=== PATIENT | female | born 1985 | race Hispanic/Latino ===

== ENCOUNTER 2024-04-19 23:15 | Emergency (ER) | payer SELFPAY ==
[2024-04-19] MEDS ORDERED: Aspirin Chewable 81 MG TAB ONE (23:27)
[2024-04-19] MEDS ORDERED: Sodium Chloride 0.9% 1,000 ML ONE (23:27)
[2024-04-19] MEDS ORDERED: Magnesium 2 GM/50 ML BAG (IN WATER) ONE (23:27)
[2024-04-19] MEDS ORDERED: Lorazepam 2 MG/ML VIAL ONE (23:27)
[2024-04-19 23:30] LABS: Hematocrit 41.8 % (36.0-47.0); Hemoglobin 13.5 g/dL (12.0-16.0); Mean Corpuscular HGB CONC 32.2 g/dL (32.0-36.0); Mean Corpuscular Hemoglobin 27.3 pg (27.0-31.0); Mean Corpuscular Volume 84.7 fl (78.0-98.0); Mean Platelet Volume 9.3 fL (7.4-10.4); Platelet Count 325 10x3/uL (130-400); RBC Distribution Width 11.3 % (11.5-14.5); Red Blood Cell (RBC) Count 4.94 mill/uL (4.20-5.40); White Blood Cell (WBC) Count 16.1 10x3/uL (4.8-10.8)
[2024-04-19 23:39] LABS: PTT 28.4 sec (22.9-36.1)
[2024-04-19 23:40] LABS: Lymphocytes 41 % (21-51); MDiff Complete? YES; Monocytes 4 % (0-10); Neutrophil 55 % (42-75)
[2024-04-19 23:41] LABS: D-Dimer Test 0.33 mcg/mL (0.27-0.43)
[2024-04-19 23:42] LABS: BHCG - Serum Negative (NEGATIVE); Pregs Control Background? CLEAR/WHITE (CLR/WHITE); Pregs Control Bar Appear? YES (CONTROL BAR)
[2024-04-19 23:51] LABS: Troponin I Less than 0.010 ng/mL (< 0.028)
[2024-04-19 23:53] LABS: ALT (SGPT) 20 U/L (8-55); AST (SGOT) 18 U/L (5-34); Albumin 4.3 g/dL (3.5-5.0); Alkaline Phosphatase 76 U/L (40-110); Anion Gap 19 mmol/L (10-20); BUN (Urea Nitrogen) 10 mg/dL (7.0-18.7); Bilirubin, Total 0.4 mg/dL (0.2-1.2); Calc. Creatinine Clearance 0 mL/min (70-130); Calcium 8.8 mg/dL (7.8-10.44); Carbon Dioxide 15 mmol/L (22-29); Chloride 111 mmol/L (98-107); Estimated GFR 81; Globulin 2.7 g/dL (2.4-3.5); Glucose 133 mg/dL (70-105); Potassium 2.7 mmol/L (3.5-5.1); Sodium 142 mmol/L (136-145)
[2024-04-19 23:56] LABS: Acetaminophen Less than 10 mcg/mL (Less than 10); Alcohol 13.3 mg/dL (Less than 10); Magnesium 1.7 mg/dL (1.6-2.6); Salicylate Less than 8.0 mg/dL (Less than 8.0)
[2024-04-20] MEDS ORDERED: Potassium Chloride 20 MEQ (100 mL) BAG ONE (00:18)
[2024-04-20 00:21] LABS: Bacteria/HPF 1+ HPF (None Seen); Bilirubin Negative (Negative); Blood, Urine Trace (Negative); CAUTI Indications for Culture Fever or rigors; Clarity Clear (Clear); Glucose, Urine (Dipstick) Negative (Negative); Ketone, Urine Negative (Negative); Leukocyte Trace (Negative); Nitrite Negative (Negative); Protein, Urine (Dipstick) Negative (Neg-Trace); RBC/HPF 0-3 HPF (0-3); Specific Gravity, Urine 1.015 (1.005-1.030); Urobilinogen 0.2 mg/dL (Less than 2); WBC/HPF 0-3 HPF (0-3)
[2024-04-20 00:23] LABS: Urine Culture Reflex No No
[2024-04-20 00:28] LABS: Amphetamine Not Detected (NotDetected); Barbiturates Screen Not Detected (NotDetected); Benzodiazepine Screen Not Detected (NotDetected); Cocaine Metabolite Screen Not Detected (NotDetected); Methadone Not Detected (NotDetected); Methamphetamine Not Detected (NotDetected); Opiate Screen Not Detected (NotDetected); Oxycodone Screen Not Detected (NotDetected); Phencyclidine (PCP) Not Detected (NotDetected); THC/Cannabinoid Screen Detected (NotDetected); Tricyclic Screen Not Detected (NotDetected)
[2024-04-20] MEDS ORDERED: Lactated Ringer's 1,000 ML ONE (00:42)
[2024-04-20] MEDS ORDERED: Lorazepam 2 MG/ML VIAL ONE (00:47)
[2024-04-20 00:49] LABS: Base Excess-Venous -7.2 mmol/L (-2.0 to 3.0); Bicarbonate (HCO3v) 16.7 mmol/L (22.0-28.0); CO2 Tension (PvCO2) 29.6 mmHg (42.0-51.0); Calcium, Ionized 1.12 mmol/L (1.15-1.33); Chloride 110 mmol/L (98-107); Hemoglobin - Calc 16.6 g/dL (12.0-16.0); Potassium 2.6 mmol/L (3.5-5.1); Sodium 143 mmol/L (138-145); T. Carbon Dioxide 17.6 mmol/L (22.0-28.0); vO2 Saturation-calc 99.8 % (60.0-85.0)
[2024-04-20] MEDS ORDERED: Potassium Bicarbonate/Cit Ac 20 MEQ TAB ONE (00:59)
[2024-04-20 01:23] LABS: Critical Call Chem-Lactate EMS.CLJ @ 0122
== END 2024-04-20 01:19 | disposition short-term general hospital (02) ==
LOC: MADERS 23:15
DX: R00.2 Palpitations (principal); E87.6 Hypokalemia; R07.89 Other chest pain; Z55.6 Problems related to health literacy
CPT/HCPCS: 71045; 80053; 80306; 80307; 81001; 82330; 82435; 82803; 83605; 83735; 83880; 84132; 84295; 84443; 84484; 84703; 85014; 85025; 85379; 85730; 93005; 96365; 96367; 96375; 96376; J2060; J3475; J3480; J7030; J7120